=== PATIENT | female | born 1985 | race African-American/Black ===

== ENCOUNTER 2024-02-21 19:28 | Emergency (ER) | payer SELFPAY ==
[~2024-02-21] VITALS: Ht 160 cm; Wt 81.8 kg
[2024-02-21] MEDS ORDERED: KETOROLAC TROMETHAMINE 30 MG/ML SDV IV ONE (19:50)
[2024-02-21] MEDS ORDERED: DEXAMETHASONE SOD. PHOSPHATE 10 MG/ML VIAL IV ONE (19:50)
[2024-02-21] MEDS ORDERED: ACETAMINOPHEN 500 MG TAB PO ONE (19:50)
[2024-02-21] MEDS ORDERED: SODIUM CHLORIDE 0.9% 1,000 ML IV ONE (19:50)
[2024-02-21 20:47] LABS: BASO% 0.4 % (0-3); HEMATOCRIT 35.1 % (37.0-47.0); HEMOGLOBIN 11.8 g/dl (12.0-16.0); IMMATURE GRANULOCYTES 0.3 % (0.0-5.0); LYMPH% 40.4 % (15-41); MEAN CORPUSCULAR HGB 29.6 pG CALC (26.0-32.0); MEAN CORPUSCULAR HGB CONC 33.6 g/dL CAL (32.0-36.0); MONO% 8.3 % (2-13); NEUT# 3.83 thou/uL (2.00-7.15); NEUT% 48.6 % (42-76); RED BLOOD COUNT 3.99 mill/uL (4.20-5.60); RED CELL DISTRI WIDTH 12.8 % (11.5-15.5)
[2024-02-21 20:59] LABS: ALBUMIN 4.1 g/dL (3.2-5.0); BILIRUBIN, TOTAL 0.4 mg/dL (0.02-1.3); CREATININE 0.9 mg/dL (0.5-1.0); POTASSIUM 3.6 mmol/l (3.5-5.1); TOTAL PROTEIN 7.4 g/dL (6.3-8.2)
[2024-02-21] MEDS ORDERED: STERAPRED DS10 MG PO (21:43)
[2024-02-21 21:46] VITALS: BP 107/63
[2024-02-21 22:00] VITALS: BP 104/68
[2024-02-21 22:12] VITALS: BP 104/68
== END 2024-02-21 22:11 | disposition home or self-care (01) | DRG 301 ==
LOC: ED 19:28
PROVIDERS: Family Medicine
DX: I77.89 Other specified disorders of arteries and arterioles (principal); Z20.822 Contact with and (suspected) exposure to COVID-19